=== PATIENT | female | born 1950 | race African-American/Black ===

== ENCOUNTER 2022-10-15 11:00 | Emergency (ER) | payer OTHER, SELFPAY ==
[2022-10-15 11:20] VITALS: BP 86/52; BP 92/56; PULSE 106; PULSE 110; RESP 20; TEMP 36.9; O2SAT 96; O2SAT 98; BMI 23.5
--- NOTE | 2022-10-15 12:19 | ED.GENADULT ---
HPI - General Adult General Chief complaint: General Medical Stated complaint: found confused ,wandering per ems Time Seen by Provider: 10/15/22 11:24 Source: patient and EMS Mode of arrival: EMS Limitations: no limitations History of Present Illness HPI narrative: 71-year-old woman presents for the possible evaluation of altered mental status. She was seen walking in [facility]. Apparently she had an unsteady gait. EMS arrived and transported her to the hospital. Patient was treated on route with IV fluids for possible dehydration. 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 She offers no acute complaints such as fevers, chills, cough or mucus production. She denies any chest pain, headache, nausea, vomiting, diarrhea. She reports that she has been eating and drinking well. She denies any significant acute intoxicants. Patient does not request any additional workup be performed. She denies any focal deficits. Review of Systems Review of Systems: CONSTITUTIONAL: Denies weight loss, fever and chills. HEENT: Denies changes in vision and hearing. RESPIRATORY: Denies SOB and cough. CV: Denies palpitations no CP. GI: Denies abdominal pain, nausea, vomiting and diarrhea. : Denies dysuria and urinary frequency. MSK: Denies myalgia and joint pain. SKIN: Denies rash and pruritus. NEUROLOGICAL: Denies headache and syncope. PSYCHIATRIC: Denies recent changes in mood. Denies anxiety and depression. All other ROS are negative unless in HPI PMFSH Social History Social History Advance Directives: No Advance Directives Information Provided: No Physical Exam ED Vital Signs: Vital Signs - 24 hr 10/15/22 11:20 Temperature 98.4 F Pulse Rate 106 H Respiratory Rate 20 Blood Pressure 92/56 L Pulse Oximetry 96 Oxygen Delivery Method Room Air BMI result Body Mass Index 23.5 GEN: Well developed, no acute distress, alert, oriented HEENT: Normocephalic, atraumatic, normal external ears, nose appears normal, no oropharyngeal edema or exudates Eyes: Normal to appearance Neck: Supple, no lymphadenopathy Respiratory: Talks in complete sentences, no respiratory distress, clear to auscultation bilaterally Cardiovascular: Regular rate and rhythm, no murmurs rubs or gallops Abdomen: Soft, nontender, nondistended, no guarding, no rebound Back: No CVA tenderness Extremities: No clubbing cyanosis or edema Neurologic: No focal neurologic deficits, cranial nerves 2-12 intact, strength is 5/5 bilaterally Skin: No rash Course Course Course Narrative: Patient will be discharged at this time. There is no evidence of acute mental status changes. Her gait is normal. Patient wishes no additional workup at this time although was offered to her. Medical Decision Making Medical Decision Making MDM Narrative: Patient presents with questionable altered mental status, gait abnormality. My initial evaluation identifies no altered mental status. She is alert oriented x3. She has no focal neurologic deficits. She has stable gait. She wishes to have no additional workup at this time. I will discharge her at this time. Differential Diagnosis Differential Diagnoses: The differential diagnosis associated with the presentation includes (Dehydration, confusion, medical examination) Independent Historian Clinical information obtained from an independent historian. History obtained from or confirmed by: EMS Discharge Plan Discharge Clinical Impression: Dehydration Patient Disposition: Home, Self-Care Instructions: Dehydration (ED) Referrals: [facility] [Provider Group] - 1 week Interventions: ED Discharge Assessment Last Done: 10/15/22 11:39 Discharge Date/Time: 10/15/22 11:40
== END 2022-10-15 11:40 | disposition home or self-care (01) ==
LOC: HO.ED 11:37
PROVIDERS: Emergency Provider Emergency Medicine
DX: E86.0 Dehydration (principal)
CPT/HCPCS: 99282